=== PATIENT | male | born 1995 | race Asian ===

== ENCOUNTER 2024-06-08 08:34 | Day surgery (SDC) | payer BC ==
[~2024-06-08 08:34] MED LIST: Sodium Chloride 0.9% 10 ML Syringe FLUSH PRN
[2024-06-08] MEDS ORDERED: Rocuronium 100 MG/10 ML MDV IV ONE (08:35)
[2024-06-08] MEDS ORDERED: Ketorolac 30 MG/ML SDV IVPUSH ONE (08:35)
[2024-06-08] MEDS ORDERED: Scopalamine 1mg/3day Transdermal Patch TOP ONE (08:35)
[2024-06-08] MEDS ORDERED: fentaNYL 100 MCG/2 ML SDV IV ONE (08:35)
[2024-06-08] MEDS ORDERED: HYDROmorphone 2 MG/ML SDV IV ONE (08:35)
[2024-06-08] MEDS ORDERED: Sugammadex Sodium 200 MG/2 ML VIAL IV ONE (08:35)
[2024-06-08] MEDS ORDERED: Ondansetron 4 MG/2 ML SDV IVPUSH ONE (08:35)
[2024-06-08] MEDS ORDERED: Midazolam 1 MG/ML 2 ML SDV IV ONE (08:35)
[2024-06-08] MEDS ORDERED: Lactated Ringers 1,000 ML IV ONE (08:35)
[2024-06-08] MEDS ORDERED: Propofol 200 MG/20 ML SDV IV ONE (08:35)
[2024-06-08] MEDS: Lactated Ringers 1,000 ML IV SCH (09:48)
[2024-06-08] MEDS: ceFAZolin 2 GM Vial IVPUSH ONE (10:20)
[2024-06-08] MEDS: Bupivacaine 0.5%/EPINEPHrine 1:200,000 30 ML SDV INJECT ONE (10:41)
== END 2024-06-08 13:44 | disposition home or self-care (01) ==
LOC: FB.SDS 08:34
PROVIDERS: ATTEND Surgery
DX: K80.12 Calculus of gallbladder with acute and chronic cholecystitis without obstruction (principal)
CPT/HCPCS: 00790; 88304; A9270-GY; J0690; J1170; J1885; J2250; J2405; J2704; J3010; J3490; J7120